=== PATIENT | female | born 1965 | race Caucasian/White ===

== ENCOUNTER 2018-04-03 12:25 | Emergency (ER) | payer BC, MEDICAID ==
[~2018-04-03] VITALS: Wt 75.3 kg
[2018-04-03] MEDS ORDERED: morphine 4 MG/ML VIAL IV STA (12:53)
[2018-04-03] MEDS ORDERED: SOD CHLORIDE 0.9% 1,000 ML IV STA (12:53)
[2018-04-03] MEDS ORDERED: ONDANSETRON 4 MG INJ IV STA (12:53)
--- NOTE | 2018-04-03 12:58 | ERD ---
ER Documentation Chief Complaint Chief Complaint bib ra from home for right lower abd. pain, constipation, bowel movement HPI 52-year-old female with no significant past medical history presenting with lower abdominal pain that started this morning. The pain is severe, 10 out of 10, constant, radiating across the abdomen, worse with movement. No alleviating factors. She has no associated fever, chills, nausea, vomiting, diarrhea or constipation. She denies any melena or hematochezia. She did have a bowel movement today that was normal appearing but somewhat hard she says. No dysuria or hematuria. ROS All systems reviewed and are negative except as per history of present illness. Medications Home Meds Active Scripts Ondansetron (Ondansetron Odt) 4 Mg Tab.rapdis, 4 MG PO Q6H PRN for NAUSEA AND/OR VOMITING, #10 TAB Prov:HARINDER WHARTON MD 04/03/18 Ibuprofen* (Motrin*) 400 Mg Tab, 400 MG PO Q6H PRN for PAIN AND OR ELEVATED TEMP, #30 TAB Prov:HARINDER WHARTON MD 04/03/18 Hydrocodone/Acetaminophen (Drummond 5-325 Tablet) 1 Each Tablet, 1 TAB PO Q6H PRN for PAIN, #7 TAB Prov:HARINDER WHARTON MD 04/03/18 PMhx/Soc Medical and Surgical Hx: pt denies Medical Hx, pt denies Surgical Hx FmHx Family History: No diabetes Physical Exam Vitals Vital Signs Date Temp Pulse Resp B/P (MAP) Pulse Ox O2 O2 Flow FiO2 Time Delivery Rate 04/03/18 98.2 78 18 104/65 98 Room Air 16:01 (78) 04/03/18 98.1 89 19 133/72 100 Room Air 12:31 (92) 04/03/18 98.1 71 19 136/65 100 12:29 (88) Physical Exam Const: In distress secondary to pain, nontoxic Head: Atraumatic Eyes: Normal Conjunctiva ENT: Normal External Ears, Nose and Mouth. Neck: Full range of motion. No meningismus. Resp: Clear to auscultation bilaterally Cardio: Regular rate and rhythm, no murmurs Abd: Soft, tender to palpation in the left lower quadrant and left middle abdomen, non distended. Normal bowel sounds Skin: No petechiae or rashes Back: No midline or flank tenderness Ext: No cyanosis, or edema Neur: Awake and alert Psych: Normal Mood and Affect Result Diagram: 04/03/18 1302 04/03/18 1302 Results 24 hrs Laboratory Tests Test 04/03/18 13:02 04/03/18 14:16 04/03/18 14:18 White Blood Count 5.4 10^3/ul Red Blood Count 4.53 10^6/ul Hemoglobin 13.1 g/dl Hematocrit 39.6 % Mean Corpuscular Volume 87.4 fl Mean Corpuscular Hemoglobin 28.9 pg Mean Corpuscular 33.1 g/dl Hemoglobin Concent Red Cell Distribution Width 12.9 % Platelet Count 260 10^3/UL Mean Platelet Volume 10.4 fl Immature Granulocytes % 0.200 % Neutrophils % 56.1 % Lymphocytes % 34.4 % Monocytes % 7.6 % Eosinophils % 1.3 % Basophils % 0.4 % Nucleated Red Blood Cells % 0.0 /100WBC Immature Granulocytes # 0.010 10^3/ul Neutrophils # 3.1 10^3/ul Lymphocytes # 1.9 10^3/ul Monocytes # 0.4 10^3/ul Eosinophils # 0.1 10^3/ul Basophils # 0.0 10^3/ul Nucleated Red Blood Cells # 0.0 10^3/ul Urine Color STRAW Urine Clarity CLEAR Urine pH 6.0 Urine Specific Conde 1.006 Urine Ketones NEGATIVE mg/dL Urine Nitrite NEGATIVE mg/dL Urine Bilirubin NEGATIVE mg/dL Urine Urobilinogen NEGATIVE mg/dL Urine Leukocyte Esterase NEGATIVE Rio/ul Urine Microscopic RBC 1 /HPF Urine Microscopic WBC 0 /HPF Urine Hemoglobin 1+ mg/dL Urine Glucose NEGATIVE mg/dL Urine Total Protein NEGATIVE mg/dl Sodium Level 140 mmol/L Potassium Level 3.9 mmol/L Chloride Level 108 mmol/L Carbon Dioxide Level 22 mmol/L Anion Gap 10 Blood Urea Nitrogen 21 mg/dl Creatinine 0.90 mg/dl Est Glomerular Filtrat > 60 mL/min Rate mL/min Glucose Level 105 mg/dl Calcium Level 9.5 mg/dl Total Bilirubin 0.2 mg/dl Direct Bilirubin 0.00 mg/dl Indirect Bilirubin 0.2 mg/dl Aspartate Amino Transf (AST/SGOT) 34 IU/L Alanine 23 IU/L Aminotransferase (ALT/SGPT) Alkaline Phosphatase 81 IU/L Total Protein 7.1 g/dl Albumin 4.1 g/dl Globulin 3.00 g/dl Albumin/Globulin Ratio 1.36 Lipase 89 U/L Bedside Urine pH (LAB) 6.5 Bedside Urine Protein (LAB) Negative Bedside Urine Glucose (UA) Negative Bedside Urine Ketones (LAB) Negative Bedside Urine Blood Negative Bedside Urine Nitrite (LAB) Negative Bedside Urine Leukocyte Esterase Negative (L POC Beta HCG, Qualitative NEGATIVE Current Medications Medications Dose Sig/Casey Start Time Status Last (Trade) Ordered Route PRN Stop Time Admin Dose Reason Admin Sodium 1,000 ml @ Q1H STAT 04/03/18 DC 04/03/18 Chloride 1,000 mls/hr IV 12:53 13:13 04/03/18 13:52 Morphine 4 mg ONCE STAT 04/03/18 DC 04/03/18 Sulfate IV 12:53 13:13 (morphine) 04/03/18 12:55 Ondansetron 4 mg ONCE STAT 04/03/18 DC 04/03/18 HCl (Zofran IV 12:53 13:13 Inj) 04/03/18 12:55 1 tab ONCE ONCE 04/03/18 DC 04/03/18 Acetaminophen PO 14:30 14:46 / 04/03/18 14:31 Hydrocodone Bitart (Drummond (5/325)) Procedures/MDM EMERGENT LABS AND DIAGNOSTIC STUDIES: Lab Results above were reviewed and interpreted by me. CBC: no anemia or evidence of infection CMP: No evidence of electrolyte abnormality, renal failure, hypoglycemia, liver failure, or biliary obstruction Lipase: no evidence of pancreatitis UA: no evidence of infection Radiology Results as interpreted by Radiology below were reviewed by Kelsie coronado MD: CT abdomen and pelvis shows evidence of enteritis Initial Nursing notes reviewed. Previous Medical Records requested via the Electronic Health Record. EMERGENCY DEPARTMENT COURSE / MEDICAL DECISION MAKING: Patient presents with lower abdominal pain and CT notable for enteritis. She does not have a fever. Her vitals are stable. There is no leukocytosis or evidence of infection. Patient was given pain medications and antiemetics with improvement of her symptoms. She did continue to have pain so I offered her a dmission for observation versus discharge home with oral medications. The patient would prefer to go home with analgesics and antiemetics. Encouraged her to return for any uncontrolled symptoms or if she is having any worsening symptoms. She was able to tolerate fluids in the ER without difficulty. At this time I have a low suspicion for bacterial infection and I do not think antibiotics are indicated. Patient's blood pressure was elevated (>120/80) but appears stable without evidence of hypertensive emergency or urgency. The patient was counseled about the risks of hypertension and urged to pursue outpatient monitoring and therapy within a week with their primary care physician. Departure Diagnosis: Primary Impression: Enteritis Condition: Stable HARINDER WHARTON MD Apr 03, 2018 12:58
[2018-04-03] MEDS ORDERED: HYDROCODONE/APAP (5/325) TAB PO ONE (14:30)
[2018-04-03] MEDS ORDERED: IBUP-1561 PO (15:45)
[2018-04-03] MEDS ORDERED: ONDA4TAB14 PO (15:45)
[2018-04-03] MEDS ORDERED: HYDR-4011 PO (15:45)
[2018-04-03 16:01] VITALS: BP 104/65; PULSE 78; RESP 18
== END 2018-04-03 16:10 | disposition home or self-care (01) ==
LOC: E/R 12:25
DX: K52.9 Noninfective gastroenteritis and colitis, unspecified (principal)
CPT/HCPCS: 36415; 74176; 80053; 81001; 81025; 83690; 85025; 96374; 96375; 99285; J2270; J2405; J7030; 81003